=== PATIENT | male | born 1930 | race African-American/Black ===

== ENCOUNTER 2017-04-18 13:20 | Inpatient (IN) | payer MEDICARE, BC ==
[~2017-04-18] VITALS: Ht 180.3 cm; Wt 95.3 kg
[~2017-04-18 13:20] MED LIST: BENA20TA3 PO; CLOP75TA33 PO; LEVOTHYROXINE OR
[2017-04-18 15:11] LABS: BASOPHILS % 0.6 % (0.0-2.0); EOSINOPHILS % 6.2 % (0.0-5.0); HEMOGLOBIN. 11.5 g/dL (14.0-18.0); LYMPHOCYTES % 24.7 % (20.0-50.0); MEAN CORPUSCULAR HEMOGLOBIN 28.2 pg (28.0-32.0); MEAN CORPUSCULAR VOLUME 86.1 fL (80.0-94.0); MEAN PLATELET VOLUME 10.5 fl (7.4-10.4); MONOCYTES % 10.6 % (2.0-8.0); NEUTROPHILS % 57.9 % (40.0-76.0); PLATELET 149 x1000/uL (130-400); RED BLOOD CELL COUNT 4.06 mill/uL (4.7-6.1); RED CELL DISTRIBUTION WIDTH 13.7 % (11.6-14.6)
[2017-04-18 15:18] LABS: INR 1.1; PROTHROMBIN TIME 11.2 sec (9.4-11.6)
[2017-04-18 15:26] LABS: CARBON DIOXIDE 31 mEq/L (21-32); CHLORIDE 101 mEq/L (98-107); TROPONIN I < 0.02 ng/mL (0.00-0.04)
[2017-04-18] MEDS ORDERED: SODIUM CHLORIDE 0.9% 1,000 ML IV ONE (17:00)
[2017-04-18 23:42] VITALS: BP 159/63
[2017-04-19 00:23] VITALS: BP 159/63
[2017-04-19] MEDS ORDERED: LEVO100T9 PO (01:20)
[2017-04-19] MEDS ORDERED: LEVOFLOXACIN 500MG PREMIX 100 ML IV SCH ×2 (01:30→04:00)
[2017-04-19] MEDS ORDERED: IPRATROPIUM/ALBUTEROL 0.5-3(2.5)MG/3ML NEB HHN PRN (01:30)
[2017-04-19] MEDS ORDERED: ACETAMINOPHEN 650MG/20.3ML UDC PO PRN (01:30)
[2017-04-19 04:00] VITALS: BP 106/53
[2017-04-19] MEDS: IPRATROPIUM/ALBUTEROL 0.5-3(2.5)MG/3ML NEB HHN SCH ×6 (05:41→23:43)
[2017-04-19] MEDS ORDERED: METHYLPREDNISOLONE SOD SUCC 40 MG/ML VIAL IV SCH (06:00)
[2017-04-19] MEDS: OMEPRAZOLE 20MG CAPSULE EXTENDED RELEASE PO SCH (06:50)
[2017-04-19] MEDS: LEVOTHYROXINE SODIUM 100MCG TABLET PO SCH (06:51)
[2017-04-19 06:55] LABS: BASOPHILS % 0.4 % (0.0-2.0); EOSINOPHILS % 4.4 % (0.0-5.0); HEMATOCRIT. 36.2 % (42.0-52.0); MEAN CORPUSCULAR HEMOGLOBIN 28.6 pg (28.0-32.0); MEAN CORPUSCULAR VOLUME 86.1 fL (80.0-94.0); MEAN PLATELET VOLUME 10.7 fl (7.4-10.4); MONOCYTES % 11.2 % (2.0-8.0); PLATELET 152 x1000/uL (130-400); RED BLOOD CELL COUNT 4.21 mill/uL (4.7-6.1); RED CELL DISTRIBUTION WIDTH 13.8 % (11.6-14.6)
[2017-04-19 07:33] LABS: CHLORIDE 102 mEq/L (98-107)
[2017-04-19 08:00] VITALS: BP 138/53
[2017-04-19 08:17] LABS: CARBON DIOXIDE 22 mEq/L (21-32)
[2017-04-19] MEDS ORDERED: AMLODIPINE 10MG TABLET PO SCH (09:00)
[2017-04-19] MEDS: ENOXAPARIN 40MG/0.4ML SYR SUBCUT SCH (09:00)
[2017-04-19 12:00] VITALS: BP 115/48
[2017-04-19] MEDS: BENAZEPRIL 20MG TABLET PO SCH (14:48)
[2017-04-19 14:53] LABS: CLARITY URINE CLEAR (CLEAR); COLOR URINE YELLOW (YELLOW); KETONES URINE NEGATIVE (NEGATIVE); LEUKOCYTE ESTERASE URINE TRACE (NEGATIVE); NITRITE URINE NEGATIVE (NEGATIVE); OCCULT BLOOD URINE 3+ (NEGATIVE); PROTEIN URINE NEGATIVE (NEGATIVE); SPECIFIC GRAVITY URINE 1.013 (1.005-1.030); UROBILINOGEN URINE 0.2 E.U./dL (0.2-1.0)
[2017-04-19 16:00] VITALS: BP 137/56
[2017-04-19 20:00] VITALS: BP 138/55
[2017-04-20] VITALS: BP 100/51
[2017-04-20 04:00] VITALS: BP 118/51
[2017-04-20] MEDS: IPRATROPIUM/ALBUTEROL 0.5-3(2.5)MG/3ML NEB HHN SCH ×4 (04:00→12:00)
[2017-04-20 08:00] VITALS: BP 102/47
[2017-04-20] MEDS: LEVOTHYROXINE SODIUM 100MCG TABLET PO SCH (08:29)
[2017-04-20] MEDS: OMEPRAZOLE 20MG CAPSULE EXTENDED RELEASE PO SCH (08:29)
[2017-04-20] MEDS: BENAZEPRIL 20MG TABLET PO SCH ×2 (08:29→08:33)
[2017-04-20] MEDS: ENOXAPARIN 40MG/0.4ML SYR SUBCUT SCH (08:30)
[2017-04-20 12:00] VITALS: BP 104/44
[2017-04-20 13:27] VITALS: BP 104/46
== END 2017-04-20 15:35 | disposition home or self-care (01) | DRG 74 ==
LOC: ER 13:42 → 8WST 17:07 → ENRESERV 21:54
PROVIDERS: ADMIT Internal Medicine; ATTEND Internal Medicine
DX: G90.8 Other disorders of autonomic nervous system (principal); I11.0 Hypertensive heart disease with heart failure; D64.9 Anemia, unspecified; I50.32 Chronic diastolic (congestive) heart failure; E03.9 Hypothyroidism, unspecified; Z85.46 Personal history of malignant neoplasm of prostate; Z87.891 Personal history of nicotine dependence; Z88.6 Allergy status to analgesic agent; Z79.899 Other long term (current) drug therapy
CPT/HCPCS: 36415; 70450; 71045; 80048; 80053; 80061; 81001; 83880; 84443; 84484; 85025; 85610; 93005; 93306; 93880; 94640; 94664; 96360; 96361; 99285; J1650; J1956; J2920; J7030; J7050; J7620

== ENCOUNTER 2018-03-13 13:03 | Inpatient (IN) | payer MEDICARE, BC ==
[~2018-03-13] VITALS: Ht 177.8 cm; Wt 90.3 kg
[~2018-03-13 13:03] MED LIST changes: +BENA20TA10 PO; -BENA20TA3 PO; +LEVO100T9 PO; -LEVOTHYROXINE OR
[2018-03-13] MEDS ORDERED: SODIUM CHLORIDE 0.9% 500 ML IV ONE (13:14)
[2018-03-13 13:45] LABS: BASOPHILS % 1.9 % (0.0-2.0); HEMATOCRIT. 34.1 % (42.0-52.0); HEMOGLOBIN. 11.3 g/dL (14.0-18.0); LYMPHOCYTES % 31.4 % (20.0-50.0); MEAN CORPUSCULAR HEMOGLOBIN 28.3 pg (28.0-32.0); MEAN CORPUSCULAR VOLUME 85.5 fL (80.0-94.0); MEAN PLATELET VOLUME 10.5 fl (7.4-10.4); MONOCYTES % 9.4 % (2.0-8.0); NEUTROPHILS % 53.3 % (40.0-76.0); PLATELET 162 x1000/uL (130-400); RED CELL DISTRIBUTION WIDTH 14.4 % (11.6-14.6)
[2018-03-13 14:54] LABS: CHLORIDE 105 mEq/L (98-107)
[2018-03-13 14:57] LABS: INR 1.1; PARTIAL THROMBOPLASTIN TIME 25.7 sec (23.4-31.0); PROTHROMBIN TIME 10.8 sec (9.1-11.1)
[2018-03-13 16:00] VITALS: BP 182/82
[2018-03-13] MEDS ORDERED: ONDANSETRON HCL 4MG/2ML INJ IV PRN (16:00)
[2018-03-13] MEDS ORDERED: ACETAMINOPHEN 325MG TABLET PO PRN (16:00)
[2018-03-13 16:27] VITALS: BP 182/82
[2018-03-13] MEDS ORDERED: CLONIDINE 0.1MG TABLET PO PRN (17:45)
[2018-03-13] MEDS ORDERED: HYDROCODONE/ACETAMINOPHEN 5/325MG TABLET PO PRN (17:45)
[2018-03-13 20:00] VITALS: BP 128/80
[2018-03-13] MEDS: AMLODIPINE 5MG TABLET PO SCH (20:50)
[2018-03-14] VITALS: BP 147/54
[2018-03-14 04:00] VITALS: BP 137/53
[2018-03-14] MEDS: LEVOTHYROXINE SODIUM 100MCG TABLET PO SCH (06:11)
[2018-03-14 06:50] LABS: CHLORIDE 104 mEq/L (98-107)
[2018-03-14 06:56] LABS: LDL CHOLESTEROL 99 mg/dL (5-100)
[2018-03-14 06:58] LABS: HDL CHOLESTEROL 45 mg/dL (40-59)
[2018-03-14 08:00] VITALS: BP 148/59
[2018-03-14 08:15] LABS: BASOPHILS % 0.5 % (0.0-2.0); EOSINOPHILS % 4.4 % (0.0-5.0); HEMATOCRIT. 33.8 % (42.0-52.0); LYMPHOCYTES % 27.9 % (20.0-50.0); MEAN CORPUSCULAR HEMOGLOBIN 28.1 pg (28.0-32.0); MEAN CORPUSCULAR VOLUME 86.1 fL (80.0-94.0); MEAN PLATELET VOLUME 10.9 fl (7.4-10.4); MONOCYTES % 11.2 % (2.0-8.0); PLATELET 149 x1000/uL (130-400); RED BLOOD CELL COUNT 3.93 mill/uL (4.7-6.1); RED CELL DISTRIBUTION WIDTH 14.2 % (11.6-14.6)
[2018-03-14] MEDS: BENAZEPRIL 10MG TABLET PO SCH (08:33)
[2018-03-14] MEDS: CLOPIDOGREL 75MG TABLET PO SCH (08:33)
[2018-03-14] MEDS: AMLODIPINE 5MG TABLET PO SCH ×2 (08:34→20:32)
[2018-03-14 11:25] LABS: CLARITY URINE CLEAR (CLEAR); COLOR URINE YELLOW (YELLOW); KETONES URINE NEGATIVE (NEGATIVE); LEUKOCYTE ESTERASE URINE TRACE (NEGATIVE); NITRITE URINE NEGATIVE (NEGATIVE); OCCULT BLOOD URINE 2+ (NEGATIVE); PH URINE 7.5 (4.5-8.0); PROTEIN URINE NEGATIVE (NEGATIVE); SPECIFIC GRAVITY URINE 1.011 (1.005-1.030); UROBILINOGEN URINE 0.2 E.U./dL (0.2-1.0)
[2018-03-14 12:00] VITALS: BP_SYST 114; BP_SYST 158; BP_SYST 166; BP_DIAS 55; BP_DIAS 65; BP_DIAS 72
[2018-03-14 16:00] VITALS: BP 150/66
[2018-03-14] MEDS ORDERED: FLUDROCORTISONE ACETATE 0.1MG TABLET PO NR (17:00)
[2018-03-14 20:00] VITALS: BP 194/74
[2018-03-15 00:08] VITALS: BP 144/70
[2018-03-15 04:02] VITALS: BP 140/78
[2018-03-15] MEDS: LEVOTHYROXINE SODIUM 100MCG TABLET PO SCH (06:35)
[2018-03-15 06:57] LABS: BASOPHILS % 0.4 % (0.0-2.0); EOSINOPHILS % 4.6 % (0.0-5.0); HEMOGLOBIN. 11.1 g/dL (14.0-18.0); LYMPHOCYTES % 30.2 % (20.0-50.0); MEAN CORPUSCULAR HEMOGLOBIN 27.9 pg (28.0-32.0); MEAN CORPUSCULAR VOLUME 85.8 fL (80.0-94.0); MEAN PLATELET VOLUME 10.6 fl (7.4-10.4); MONOCYTES % 11.9 % (2.0-8.0); NEUTROPHILS % 52.9 % (40.0-76.0); PLATELET 157 x1000/uL (130-400); RED BLOOD CELL COUNT 3.96 mill/uL (4.7-6.1); RED CELL DISTRIBUTION WIDTH 13.9 % (11.6-14.6)
[2018-03-15 08:00] VITALS: BP 119/57
[2018-03-15 08:15] LABS: CHLORIDE 103 mEq/L (98-107)
[2018-03-15] MEDS ORDERED: FLUDROCORTISONE ACETATE 0.1MG TABLET PO SCH (09:00)
[2018-03-15] MEDS: AMLODIPINE 5MG TABLET PO SCH (09:14)
[2018-03-15] MEDS: CLOPIDOGREL 75MG TABLET PO SCH (09:14)
[2018-03-15] MEDS: BENAZEPRIL 10MG TABLET PO SCH (09:15)
[2018-03-15 09:43] VITALS: BP 119/119
== END 2018-03-15 12:33 | disposition home or self-care (01) | DRG 73 ==
LOC: ER 13:03 → 6WST 14:22 → ENRESERV 15:21
PROVIDERS: ADMIT Internal Medicine; ATTEND Internal Medicine
DX: G90.8 Other disorders of autonomic nervous system (principal); I50.43 Acute on chronic combined systolic (congestive) and diastolic (congestive) heart failure; I11.0 Hypertensive heart disease with heart failure; I95.1 Orthostatic hypotension; D63.8 Anemia in other chronic diseases classified elsewhere; E78.5 Hyperlipidemia, unspecified; I25.10 Atherosclerotic heart disease of native coronary artery without angina pectoris; E03.9 Hypothyroidism, unspecified; E78.00 Pure hypercholesterolemia, unspecified; H04.123 Dry eye syndrome of bilateral lacrimal glands; J45.909 Unspecified asthma, uncomplicated; Z85.46 Personal history of malignant neoplasm of prostate; Z87.11 Personal history of peptic ulcer disease; Z87.891 Personal history of nicotine dependence; Z95.1 Presence of aortocoronary bypass graft; Z88.6 Allergy status to analgesic agent; Z79.899 Other long term (current) drug therapy; E86.0 Dehydration
CPT/HCPCS: 36415; 70551; 71045; 80048; 80061; 83735; 83880; 84443; 84484; 93005; 93306; 93880; 96360; 96361; 97162; 97535; 99285; J7040

== ENCOUNTER 2019-02-04 10:12 | Inpatient (IN) | payer MEDICARE, BC ==
[~2019-02-04] VITALS: Ht 177.8 cm; Wt 81.7 kg
[2019-02-04 11:10] LABS: BASOPHILS % 0.9 % (0.0-2.0); EOSINOPHILS % 2.1 % (0.0-5.0); HEMATOCRIT. 30.9 % (42.0-52.0); HEMOGLOBIN. 10.2 g/dL (14.0-18.0); LYMPHOCYTES % 17.1 % (20.0-50.0); MEAN CORPUSCULAR HEMOGLOBIN 28.9 pg (28.0-32.0); MEAN CORPUSCULAR VOLUME 87.4 fL (80.0-94.0); MEAN PLATELET VOLUME 9.2 fl (7.4-10.4); MONOCYTES % 6.8 % (2.0-8.0); NEUTROPHILS % 73.1 % (40.0-76.0); PLATELET 113 x1000/uL (130-400); RED BLOOD CELL COUNT 3.54 mill/uL (4.7-6.1); RED CELL DISTRIBUTION WIDTH 14.5 % (11.6-14.6)
[2019-02-04 11:16] LABS: CHLORIDE 104 mEq/L (98-107)
[2019-02-04 11:25] LABS: CLARITY URINE CLOUDY (CLEAR); KETONES URINE NEGATIVE (NEGATIVE); LEUKOCYTE ESTERASE URINE 2+ (NEGATIVE); NITRITE URINE NEGATIVE (NEGATIVE); OCCULT BLOOD URINE 3+ (NEGATIVE); PH URINE 5.5 (4.5-8.0); PROTEIN URINE 2+ (NEGATIVE); SPECIFIC GRAVITY URINE 1.021 (1.005-1.030); UROBILINOGEN URINE 0.2 E.U./dL (0.2-1.0)
[2019-02-04 11:29] LABS: COLOR URINE BLOODY (YELLOW)
[2019-02-04] MEDS ORDERED: CEFTRIAXONE 1 G PREMIX 50 ML IV ONE (11:45)
[2019-02-04] MEDS ORDERED: ONDANSETRON HCL 4MG/2ML INJ IV PRN (14:15)
[2019-02-04] MEDS ORDERED: ACETAMINOPHEN 325MG TABLET PO PRN (14:15)
[2019-02-04 16:00] VITALS: BP 151/64
[2019-02-04] MEDS: SODIUM CHLORIDE 0.9% 1,000 ML IV SCH (16:00)
[2019-02-04 16:19] VITALS: BP 151/64
[2019-02-04] MEDS ORDERED: CRES10 PO (17:20)
[2019-02-04] MEDS ORDERED: BENA5TAB6 PO (17:22)
[2019-02-04] MEDS ORDERED: INFLUENZA VIRUS VACCINE(AFLURIA) 0.5ML SYR IM ONE (18:00)
[2019-02-04] MEDS ORDERED: CLONIDINE 0.1MG TABLET PO PRN (20:45)
[2019-02-04] MEDS: TAMSULOSIN HCL 0.4MG SR CAPSULE PO SCH (21:18)
[2019-02-05] VITALS: BP 147/62
[2019-02-05 04:00] VITALS: BP 140/57
[2019-02-05] MEDS: SODIUM CHLORIDE 0.9% 1,000 ML IV SCH ×2 (05:02→18:01)
[2019-02-05 07:29] LABS: BASOPHILS % 0.4 % (0.0-2.0); EOSINOPHILS % 4.6 % (0.0-5.0); HEMATOCRIT. 32.2 % (42.0-52.0); HEMOGLOBIN. 10.7 g/dL (14.0-18.0); LYMPHOCYTES % 15.9 % (20.0-50.0); MEAN CORPUSCULAR HEMOGLOBIN 28.8 pg (28.0-32.0); MEAN CORPUSCULAR VOLUME 87.2 fL (80.0-94.0); MEAN PLATELET VOLUME 9.8 fl (7.4-10.4); MONOCYTES % 3.7 % (2.0-8.0); NEUTROPHILS % 75.4 % (40.0-76.0); PLATELET 124 x1000/uL (130-400); RED CELL DISTRIBUTION WIDTH 14.3 % (11.6-14.6)
[2019-02-05 07:40] LABS: CHLORIDE 103 mEq/L (98-107)
[2019-02-05 08:00] VITALS: BP_SYST 152; BP_SYST 157; BP_DIAS 77
[2019-02-05] MEDS ORDERED: CEFTRIAXONE 1 G PREMIX 50 ML IV SCH (09:00)
[2019-02-05 12:00] VITALS: BP 140/68
[2019-02-05 16:00] VITALS: BP 138/79
[2019-02-05 20:00] VITALS: BP 117/58
[2019-02-05] MEDS: TAMSULOSIN HCL 0.4MG SR CAPSULE PO SCH (21:50)
[2019-02-06] VITALS (7 sets, daily range): BP systolic 87–155; BP diastolic 35–70
[2019-02-06 05:48] LABS: CHLORIDE 101 mEq/L (98-107)
[2019-02-06 06:17] LABS: BASOPHILS % 0.2 % (0.0-2.0); EOSINOPHILS % 3.6 % (0.0-5.0); HEMATOCRIT. 31.6 % (42.0-52.0); HEMOGLOBIN. 10.4 g/dL (14.0-18.0); LYMPHOCYTES % 15.6 % (20.0-50.0); MEAN CORPUSCULAR HEMOGLOBIN 28.5 pg (28.0-32.0); MEAN CORPUSCULAR VOLUME 86.5 fL (80.0-94.0); MONOCYTES % 2.2 % (2.0-8.0); NEUTROPHILS % 78.4 % (40.0-76.0); PLATELET 125 x1000/uL (130-400); RED BLOOD CELL COUNT 3.65 mill/uL (4.7-6.1); RED CELL DISTRIBUTION WIDTH 14.2 % (11.6-14.6)
[2019-02-06] MEDS: CEFTRIAXONE 1,000 MG in DEXTROSE 5% WATER 50 ML IV SCH (08:42)
[2019-02-06] MEDS: SODIUM CHLORIDE 0.9% 1,000 ML IV SCH ×2 (08:42→20:35)
[2019-02-06] MEDS: FLUDROCORTISONE ACETATE 0.1MG TABLET PO SCH (13:28)
[2019-02-06] MEDS: TAMSULOSIN HCL 0.4MG SR CAPSULE PO SCH (20:32)
[2019-02-07 00:38] VITALS: BP 136/61
[2019-02-07 04:00] VITALS: BP 110/24
[2019-02-07 06:29] LABS: BASOPHILS % 0.4 % (0.0-2.0); EOSINOPHILS % 6.1 % (0.0-5.0); LYMPHOCYTES % 22.6 % (20.0-50.0); MEAN CORPUSCULAR HEMOGLOBIN 28.8 pg (28.0-32.0); MEAN CORPUSCULAR VOLUME 86.4 fL (80.0-94.0); MEAN PLATELET VOLUME 10.3 fl (7.4-10.4); MONOCYTES % 1.9 % (2.0-8.0); PLATELET 131 x1000/uL (130-400); RED BLOOD CELL COUNT 3.47 mill/uL (4.7-6.1); RED CELL DISTRIBUTION WIDTH 14.3 % (11.6-14.6)
[2019-02-07 07:01] LABS: CHLORIDE 103 mEq/L (98-107)
[2019-02-07 08:00] VITALS: BP_SYST 164; BP_SYST 165; BP_DIAS 75; BP_DIAS 80
[2019-02-07] MEDS: FLUDROCORTISONE ACETATE 0.1MG TABLET PO SCH (08:23)
[2019-02-07] MEDS: CEFTRIAXONE 1,000 MG in DEXTROSE 5% WATER 50 ML IV SCH (08:23)
[2019-02-07] MEDS: SODIUM CHLORIDE 0.9% 1,000 ML IV SCH (10:53)
[2019-02-07] MEDS: POLYETHYLENE GLYCOL 3350 (17GM) 1 DOSE PACK PO SCH (10:53)
[2019-02-07 11:35] LABS: PHOSPHORUS 2.9 mg/dL (2.5-4.9)
[2019-02-07 11:48] LABS: FOLIC ACID (FOLATE) SERUM 19.5 ng/mL (>5.38)
[2019-02-07 12:00] VITALS: BP 126/65
[2019-02-07 16:00] VITALS: BP_SYST 116; BP_SYST 123; BP_SYST 97; BP_DIAS 47; BP_DIAS 55; BP_DIAS 59
[2019-02-07] MEDS: DOCUSATE SODIUM 100MG CAPSULE PO SCH (16:27)
[2019-02-07 20:21] VITALS: BP 144/75
[2019-02-07] MEDS: TAMSULOSIN HCL 0.4MG SR CAPSULE PO SCH (21:44)
[2019-02-08] VITALS: BP 138/53
[2019-02-08] MEDS: SODIUM CHLORIDE 0.9% 1,000 ML IV SCH ×2 (01:37→18:35)
[2019-02-08 04:00] VITALS: BP 123/53
[2019-02-08 08:00] VITALS: BP 129/60
[2019-02-08] MEDS: FLUDROCORTISONE ACETATE 0.1MG TABLET PO SCH (08:46)
[2019-02-08] MEDS: DOCUSATE SODIUM 100MG CAPSULE PO SCH ×2 (08:47→18:35)
[2019-02-08] MEDS: POLYETHYLENE GLYCOL 3350 (17GM) 1 DOSE PACK PO SCH (08:47)
[2019-02-08] MEDS: CEFTRIAXONE 1,000 MG in DEXTROSE 5% WATER 50 ML IV SCH (09:44)
[2019-02-08 11:54] VITALS: BP 104/41
[2019-02-08 16:00] VITALS: BP 135/60
[2019-02-08] MEDS: TAMSULOSIN HCL 0.4MG SR CAPSULE PO SCH (21:00)
[2019-02-09] VITALS (7 sets, daily range): BP systolic 129–167; BP diastolic 55–82
[2019-02-09] MEDS: SODIUM CHLORIDE 0.9% 1,000 ML IV SCH (02:40)
[2019-02-09 06:40] LABS: BASOPHILS % 0.4 % (0.0-2.0); EOSINOPHILS % 3.8 % (0.0-5.0); HEMATOCRIT. 26.6 % (42.0-52.0); HEMOGLOBIN. 8.9 g/dL (14.0-18.0); LYMPHOCYTES % 36.5 % (20.0-50.0); MEAN CORPUSCULAR HEMOGLOBIN 28.9 pg (28.0-32.0); MEAN CORPUSCULAR VOLUME 86.2 fL (80.0-94.0); MEAN PLATELET VOLUME 9.7 fl (7.4-10.4); MONOCYTES % 9.8 % (2.0-8.0); NEUTROPHILS % 49.5 % (40.0-76.0); PLATELET 106 x1000/uL (130-400); RED BLOOD CELL COUNT 3.08 mill/uL (4.7-6.1); RED CELL DISTRIBUTION WIDTH 14.2 % (11.6-14.6)
[2019-02-09 06:59] LABS: CHLORIDE 107 mEq/L (98-107)
[2019-02-09 07:13] LABS: T4 FREE 1.17 ng/dL (0.76-1.46)
[2019-02-09] MEDS: CEFTRIAXONE 1,000 MG in DEXTROSE 5% WATER 50 ML IV SCH (08:38)
[2019-02-09] MEDS: FLUDROCORTISONE ACETATE 0.1MG TABLET PO SCH (08:51)
[2019-02-09] MEDS: DOCUSATE SODIUM 100MG CAPSULE PO SCH (08:51)
[2019-02-09] MEDS: POLYETHYLENE GLYCOL 3350 (17GM) 1 DOSE PACK PO SCH (08:51)
[2019-02-09] MEDS ORDERED: LEVOTHYROXINE SODIUM 100MCG TABLET PO SCH (09:00)
[2019-02-09] MEDS ORDERED: MEMANTINE HCL 5MG TABLET PO SCH (21:00)
[2019-02-09] MEDS: TAMSULOSIN HCL 0.4MG SR CAPSULE PO SCH (22:17)
[2019-02-18 15:06] LABS: 25-HYDROXY VITAMIN D3 23 ng/mL (.)
== END 2019-02-10 00:15 | DRG 689 ==
LOC: ER 10:12 → 7WST 12:11 → ENRESERV 13:01
PROVIDERS: ADMIT Internal Medicine Nephrology; ATTEND Internal Medicine Nephrology
DX: N39.0 Urinary tract infection, site not specified (principal); G92 Toxic encephalopathy; E46 Unspecified protein-calorie malnutrition; E87.1 Hypo-osmolality and hyponatremia; E44.1 Mild protein-calorie malnutrition; E03.9 Hypothyroidism, unspecified; E78.5 Hyperlipidemia, unspecified; J45.909 Unspecified asthma, uncomplicated; I11.9 Hypertensive heart disease without heart failure; Z95.0 Presence of cardiac pacemaker; W18.30XA Fall on same level, unspecified, initial encounter; N40.1 Benign prostatic hyperplasia with lower urinary tract symptoms; I95.1 Orthostatic hypotension; N40.0 Benign prostatic hyperplasia without lower urinary tract symptoms; Z83.2 Family history of diseases of the blood and blood-forming organs and certain disorders involving the immune mechanism; Z87.11 Personal history of peptic ulcer disease; Z85.46 Personal history of malignant neoplasm of prostate; D64.9 Anemia, unspecified; D69.6 Thrombocytopenia, unspecified; E78.00 Pure hypercholesterolemia, unspecified
CPT/HCPCS: 36415; 71045; 80048; 80320; 81003; 82140; 82306; 82550; 82607; 82746; 83036; 83735; 84100; 84153; 84439; 84443; 84481; 90686; 92523; 92610; 93306; 93970; 97110; 97162; 97166; 97530; 97535; 99285; J0696; J7060; G0103; G0480

== ENCOUNTER 2019-05-08 12:58 | Inpatient (IN) | payer MEDICARE, BC ==
[~2019-05-08] VITALS: Ht 177.8 cm; Wt 83.0 kg
[~2019-05-08 12:58] MED LIST changes: -BENA20TA10 PO; +CRES10 PO; +DOCU-138 PO; +FLOR PO; +MEMA5TAB7 PO; +MIDO5TAB4 PO; +NITR100C MT; +TAMS-11 PO
[2019-05-08] MEDS ORDERED: SODIUM CHLORIDE 0.9% 1,000 ML IV ONE (15:24)
[2019-05-08 15:50] LABS: CLARITY URINE CLEAR (CLEAR); COLOR URINE YELLOW (YELLOW); KETONES URINE NEGATIVE (NEGATIVE); LEUKOCYTE ESTERASE URINE TRACE (NEGATIVE); NITRITE URINE NEGATIVE (NEGATIVE); OCCULT BLOOD URINE TRACE (NEGATIVE); PH URINE 7.5 (4.5-8.0); PROTEIN URINE NEGATIVE (NEGATIVE); SPECIFIC GRAVITY URINE 1.012 (1.005-1.030); UROBILINOGEN URINE 0.2 E.U./dL (0.2-1.0)
[2019-05-08 16:37] LABS: *AMPHETAMINES SCREEN URINE NEGATIVE (NEGATIVE)
[2019-05-08 16:38] LABS: *BARBITURATES SCREEN URINE NEGATIVE (NEGATIVE); *BENZODIAZEPINES SCREEN URINE NEGATIVE (NEGATIVE); *COCAINE SCREEN URINE NEGATIVE (NEGATIVE); CANNABINOID URINE SCREEN NEGATIVE (NEGATIVE); METHADONE URINE SCREEN NEGATIVE (NEGATIVE); OPIATES URINE SCREEN NEGATIVE (NEGATIVE); PHENCYCLIDINE URINE SCREEN NEGATIVE (NEGATIVE)
[2019-05-08 17:32] LABS: BASOPHILS % 0.4 % (0.0-2.0); EOSINOPHILS % 3.7 % (0.0-5.0); HEMATOCRIT. 38.7 % (42.0-52.0); HEMOGLOBIN. 12.5 g/dL (14.0-18.0); LYMPHOCYTES % 18.6 % (20.0-50.0); MEAN CORPUSCULAR HEMOGLOBIN 26.8 pg (28.0-32.0); MEAN PLATELET VOLUME 9.7 fl (7.4-10.4); NEUTROPHILS % 69.3 % (40.0-76.0); PLATELET 158 x1000/uL (130-400); RED BLOOD CELL COUNT 4.66 mill/uL (4.7-6.1); RED CELL DISTRIBUTION WIDTH 15.6 % (11.6-14.6)
[2019-05-08 17:38] LABS: CHLORIDE 104 mEq/L (98-107)
[2019-05-08 17:44] LABS: ETHANOL BLOOD < 10 mg/dL
[2019-05-08] MEDS ORDERED: IPRATROPIUM/ALBUTEROL 0.5-3(2.5)MG/3ML NEB HHN PRN (17:45)
[2019-05-08] MEDS ORDERED: ONDANSETRON HCL 4MG/2ML INJ IV PRN (17:45)
[2019-05-08] MEDS ORDERED: DIPHENHYDRAMINE 50MG/ML VIAL IV PRN (17:45)
[2019-05-08] MEDS ORDERED: ACETAMINOPHEN 325MG TABLET PO PRN (17:45)
[2019-05-08] MEDS ORDERED: ENOXAPARIN 40MG/0.4ML SYR SUBCUT NR (18:00)
[2019-05-08] MEDS: CLONIDINE 0.1MG TABLET PO PRN (18:33)
[2019-05-08] MEDS ORDERED: HYDRALAZINE 20MG/ML VIAL IV PRN (18:45)
[2019-05-08 18:53] LABS: PHOSPHORUS 3.4 mg/dL (2.5-4.9)
[2019-05-08 22:00] VITALS: BP 171/85
[2019-05-09] VITALS: BP 160/64
[2019-05-09] MEDS ORDERED: HYDR-4133 PO (00:17)
[2019-05-09] MEDS ORDERED: POLY250017 PO (00:17)
[2019-05-09] MEDS ORDERED: ATOR10TA69 PO (00:17)
[2019-05-09 04:00] VITALS: BP 139/66
[2019-05-09 06:13] LABS: BASOPHILS % 0.4 % (0.0-2.0); EOSINOPHILS % 6.5 % (0.0-5.0); HEMATOCRIT. 37.6 % (42.0-52.0); HEMOGLOBIN. 12.1 g/dL (14.0-18.0); LYMPHOCYTES % 27.7 % (20.0-50.0); MEAN CORPUSCULAR HEMOGLOBIN 26.9 pg (28.0-32.0); MEAN CORPUSCULAR VOLUME 83.3 fL (80.0-94.0); MEAN PLATELET VOLUME 10.3 fl (7.4-10.4); MONOCYTES % 11.4 % (2.0-8.0); PLATELET 161 x1000/uL (130-400); RED BLOOD CELL COUNT 4.52 mill/uL (4.7-6.1)
[2019-05-09 08:00] VITALS: BP 150/68
[2019-05-09] MEDS ORDERED: ENOXAPARIN 40MG/0.4ML SYR SUBCUT SCH (09:00)
[2019-05-09] MEDS ORDERED: ENOXAPARIN 30MG/0.3ML SYR SUBCUT SCH (09:00)
[2019-05-09 12:00] VITALS: BP 121/41
[2019-05-09 16:00] VITALS: BP 148/66
[2019-05-09 20:38] VITALS: BP 167/75
[2019-05-10] VITALS: BP 154/67
[2019-05-10 04:00] VITALS: BP 109/69
[2019-05-10 08:00] VITALS: BP 141/68
[2019-05-10] MEDS: ENOXAPARIN 40MG/0.4ML SYR SUBCUT SCH (09:25)
[2019-05-10 12:00] VITALS: BP 135/61
[2019-05-10 16:00] VITALS: BP 147/64
[2019-05-10 20:21] VITALS: BP 149/67
[2019-05-11] VITALS (7 sets, daily range): BP systolic 125–190; BP diastolic 57–89
[2019-05-11] MEDS: ENOXAPARIN 40MG/0.4ML SYR SUBCUT SCH (08:34)
[2019-05-11] MEDS: CLONIDINE 0.1MG TABLET PO PRN (08:34)
[2019-05-11] MEDS ORDERED: AMLO5TAB88 MT (16:06)
[2019-05-11] MEDS ORDERED: AMLODIPINE 5MG TABLET PO SCH (21:00)
== END 2019-05-11 19:42 | DRG 74 ==
LOC: ER 13:11 → 6WST 16:30 → ENRESERV 21:04
PROVIDERS: ADMIT Internal Medicine; ATTEND Internal Medicine
DX: G90.8 Other disorders of autonomic nervous system (principal); N39.0 Urinary tract infection, site not specified; I48.0 Paroxysmal atrial fibrillation; I49.5 Sick sinus syndrome; F02.80 Dementia in other diseases classified elsewhere, unspecified severity, without behavioral disturbance, psychotic disturbance, mood disturbance, and anxiety; G30.9 Alzheimer's disease, unspecified; E03.9 Hypothyroidism, unspecified; E78.5 Hyperlipidemia, unspecified; I11.0 Hypertensive heart disease with heart failure; J44.9 Chronic obstructive pulmonary disease, unspecified; I50.9 Heart failure, unspecified; D64.9 Anemia, unspecified; Z95.0 Presence of cardiac pacemaker; Z87.01 Personal history of pneumonia (recurrent); Z85.51 Personal history of malignant neoplasm of bladder; Z79.899 Other long term (current) drug therapy; Z88.6 Allergy status to analgesic agent
CPT/HCPCS: 36415; 71045; 80053; 80061; 80305; 80320; 81003; 82962; 83605; 83735; 84100; 84443; 84484; 85025; 93005; 93970; 96372; 97162; 97166; 99285; J0360; J1650; J7030; G0480

== ENCOUNTER 2019-06-18 12:25 | Inpatient (IN) | payer MEDICARE, BC ==
[2019-06-18] VITALS (14 sets, daily range): BP systolic 62–76; BP diastolic 34–46
[~2019-06-18] VITALS: Ht 185.4 cm; Wt 95.3 kg
[~2019-06-18 12:25] MED LIST changes: +AMLO5TAB88 MT; +ATOR10TA69 PO; -MIDO5TAB4 PO; +POLY250017 PO
[2019-06-18] MEDS ORDERED: SODIUM CHLORIDE 0.9% 1000ML BAG (SEPSIS BOLUS) IV ONE (12:45)
[2019-06-18] MEDS ORDERED: PIPERACILLIN/TAZ 3.375G PREMIX 50 ML IV ONE (12:45)
[2019-06-18] MEDS ORDERED: AZITHROMYCIN 500 MG in DEXT 5% WATER 250 ML IV ONE (12:45)
[2019-06-18 12:52] LABS: HEMATOCRIT. 30.8 % (42.0-52.0); HEMOGLOBIN. 10.1 g/dL (14.0-18.0); MEAN CORPUSCULAR HEMOGLOBIN 27.2 pg (28.0-32.0); MEAN CORPUSCULAR VOLUME 83.1 fL (80.0-94.0); MEAN PLATELET VOLUME 8.8 fl (7.4-10.4); PLATELET 246 x1000/uL (130-400); RED CELL DISTRIBUTION WIDTH 15.2 % (11.6-14.6)
[2019-06-18 12:58] LABS: CHLORIDE 98 mEq/L (98-107)
[2019-06-18 13:00] LABS: INR 1.1
[2019-06-18 13:13] LABS: PLATELET ESTIMATE NORMAL
[2019-06-18] MEDS ORDERED: VANCOMYCIN 1 G PREMIX 200 ML IV SCH (13:15)
[2019-06-18 13:31] LABS: CLARITY URINE TURBID (CLEAR); COLOR URINE YELLOW (YELLOW); KETONES URINE NEGATIVE (NEGATIVE); LEUKOCYTE ESTERASE URINE 3+ (NEGATIVE); NITRITE URINE NEGATIVE (NEGATIVE); OCCULT BLOOD URINE 3+ (NEGATIVE); PH URINE 5.5 (4.5-8.0); PROTEIN URINE 2+ (NEGATIVE); SPECIFIC GRAVITY URINE 1.012 (1.005-1.030); UROBILINOGEN URINE 0.2 E.U./dL (0.2-1.0)
[2019-06-18] MEDS ORDERED: NOREPINEPHRINE 4MG/250ML PMX 250 ML IV ONE ×2 (13:45→16:30)
[2019-06-18] MEDS ORDERED: SODIUM CHLORIDE 0.9% 1,000 ML IV SCH (15:02)
[2019-06-18] MEDS ORDERED: PIPERACILLIN/TAZ 3.375G PREMIX 50 ML IV SCH (15:15)
[2019-06-18] MEDS ORDERED: DIPHENHYDRAMINE 50MG/ML VIAL IV PRN (15:15)
[2019-06-18] MEDS ORDERED: CLONIDINE 0.1MG TABLET PO PRN (15:15)
[2019-06-18] MEDS ORDERED: ONDANSETRON HCL 4MG/2ML INJ IV PRN (15:15)
[2019-06-18] MEDS ORDERED: DOPAMINE 400MG/250ML PREMIX 250 ML IV ONE ×2 (15:30→16:54)
[2019-06-18] MEDS ORDERED: VASOPRESSIN 10 UNIT in SODIUM CHLORIDE 0.9% 99.5 ML IV PRN (16:15)
[2019-06-18] MEDS ORDERED: NOREPINEPHRINE 16 MG in DEXT 5% WATER 234 ML IV PRN ×2 (16:15→18:30)
[2019-06-18] MEDS ORDERED: PHENYLEPHRINE 40 MG in DEXT 5% WATER 246 ML IV PRN ×2 (16:30→19:15)
[2019-06-18 16:40] LABS: BG BASE EXCESS -25.2 mmol/L (-2.0-2.0); BG CARBOXYHEMOGLOBIN 0.1 % (0.5-1.5); BG DEOXYHEMOGLOBIN 29.5 % (0.0-5.0); BG FRACTION INSPIRED OXYGEN 100; BG HCO3 ACT 9.3 mmol/L (22.0-26.0); BG METHEMOGLOBIN 0.1 % (0.0-1.5); BG OXYGEN SATURATION 70.4 % (92.0-98.5); BG OXYHEMOGLOBIN 70.3 % (94.0-97.0); BG PCO2 60.5 mmHg (35.0-45.0); BG PH 6.803 (7.350-7.450); BG PO2 59.4 mmHg (75.0-100.0); BG SAMPLE SITE RIGHT BRACHIAL; BG TIDAL VOLUME(mL) 500 mL; BG TOTAL HEMOGLOBIN 11.7 g/dL (12.0-18.0); BG VENT MODE VENT - A/C; BG VENT RATE 16 set
[2019-06-18] MEDS: PHENYLEPHRINE 40 MG in DEXT 5% WATER 246 ML IV PRN ×2 (16:57→20:24)
[2019-06-18] MEDS: VASOPRESSIN 10 UNIT in SODIUM CHLORIDE 0.9% 99.5 ML IV PRN ×2 (16:57→20:36)
[2019-06-18] MEDS ORDERED: SODIUM BICARBONATE 8.4% 1 MEQ/ML 50ML SYR IV NR ×2 (17:15→22:00)
[2019-06-18] MEDS: SODIUM BICARBONATE 150 MEQ in SODIUM CHLORIDE 0.45% 850 ML IV SCH (18:02)
[2019-06-18] MEDS: DOPAMINE 800MG PREMIX (DOUBLE) 250 ML IV PRN ×2 (19:06→22:02)
[2019-06-18] MEDS ORDERED: NOREPINEPHRINE 32 MG in DEXT 5% WATER 468 ML IV PRN (19:15)
[2019-06-18] MEDS ORDERED: PHENYLEPHRINE 80 MG in DEXT 5% WATER 492 ML IV PRN (19:30)
[2019-06-18] MEDS ORDERED: DEXTROSE 50% WATER 50ML SYRINGE IV PRN (19:30)
[2019-06-18] MEDS ORDERED: ALBUMIN HUMAN 25GM/500ML (5%) IV ONE (20:00)
[2019-06-18] MEDS ORDERED: VANCOMYCIN 500 MG PREMIX 100 ML IV NR (20:00)
[2019-06-18] MEDS: BLOOD SUGAR DIAGNOSTIC STRIP TEST SCH ×2 (20:18→23:12)
[2019-06-18] MEDS: PIPERACILLIN/TAZOBACTAM 2.25 G in DEXTROSE 5% WATER 50 ML IV SCH (20:53)
[2019-06-18] MEDS: INSULIN LISPRO 100 UNITS/ML SUBCUT SCH (23:12)
[2019-06-19] VITALS (15 sets, daily range): BP systolic 57–64; BP diastolic 37–68
[2019-06-19] MEDS: DOPAMINE 800MG PREMIX (DOUBLE) 250 ML IV PRN ×2 (00:32→02:59)
[2019-06-19] MEDS: VASOPRESSIN 10 UNIT in SODIUM CHLORIDE 0.9% 99.5 ML IV PRN ×2 (00:32→04:43)
[2019-06-19] MEDS: PIPERACILLIN/TAZOBACTAM 2.25 G in DEXTROSE 5% WATER 50 ML IV SCH (04:06)
[2019-06-19] MEDS: SODIUM BICARBONATE 150 MEQ in SODIUM CHLORIDE 0.45% 850 ML IV SCH (04:08)
[2019-06-19] MEDS: INSULIN LISPRO 100 UNITS/ML SUBCUT SCH (05:03)
[2019-06-19] MEDS: BLOOD SUGAR DIAGNOSTIC STRIP TEST SCH (05:03)
[2019-06-19 05:45] LABS: CHLORIDE 98 mEq/L (98-107)
[2019-06-19 05:52] LABS: LDL CHOLESTEROL 21 mg/dL (5-100)
[2019-06-19 05:54] LABS: HDL CHOLESTEROL 12 mg/dL (40-59)
[2019-06-19 06:13] LABS: HEMATOCRIT. 30.4 % (42.0-52.0); MEAN CORPUSCULAR VOLUME 91.4 fL (80.0-94.0); MEAN PLATELET VOLUME 9.1 fl (7.4-10.4); PLATELET 127 x1000/uL (130-400); RED BLOOD CELL COUNT 3.33 mill/uL (4.7-6.1); RED CELL DISTRIBUTION WIDTH 16.1 % (11.6-14.6)
[2019-06-19 08:14] LABS: NUCLEATED RED BLOOD CELLS 2 /100 WBC; PLATELET ESTIMATE SLIGHTLY DECREASED
[2019-06-19] MEDS ORDERED: INSULIN LISPRO 100 UNITS/ML SUBCUT SCH (19:30)
== END 2019-06-19 09:37 | disposition expired | DRG 871 ==
LOC: ER 12:25 → CVICU 13:44 → EDBEDREQ 14:04 → EDBEDREQSVC 14:04 → ENRESERV 14:24
PROVIDERS: ADMIT Internal Medicine; ATTEND Internal Medicine
PROC: 5A1935Z Respiratory Ventilation, Less than 24 Consecutive Hours (ICD-10-PCS; principal; 2019-06-18)
DX: A41.9 Sepsis, unspecified organism (principal); R65.21 Severe sepsis with septic shock; J96.01 Acute respiratory failure with hypoxia; J18.9 Pneumonia, unspecified organism; N17.0 Acute kidney failure with tubular necrosis; G93.41 Metabolic encephalopathy; E43 Unspecified severe protein-calorie malnutrition; E87.1 Hypo-osmolality and hyponatremia; E87.2 Acidosis; N39.0 Urinary tract infection, site not specified; K92.2 Gastrointestinal hemorrhage, unspecified; R57.9 Shock, unspecified; K55.9 Vascular disorder of intestine, unspecified; E87.5 Hyperkalemia; I11.0 Hypertensive heart disease with heart failure; I25.2 Old myocardial infarction; G30.9 Alzheimer's disease, unspecified; F02.80 Dementia in other diseases classified elsewhere, unspecified severity, without behavioral disturbance, psychotic disturbance, mood disturbance, and anxiety; C67.9 Malignant neoplasm of bladder, unspecified; I44.0 Atrioventricular block, first degree; I48.0 Paroxysmal atrial fibrillation; Z95.0 Presence of cardiac pacemaker; Z85.51 Personal history of malignant neoplasm of bladder; Z85.46 Personal history of malignant neoplasm of prostate; Z87.01 Personal history of pneumonia (recurrent); I25.10 Atherosclerotic heart disease of native coronary artery without angina pectoris
CPT/HCPCS: 31500; 36415; 36600; 71045; 74176; 80053; 80061; 80076; 80202; 81003; 82248; 82375; 82805; 82962; 83036; 83605; 84145; 84443; 84484; 85025; 87070; 87077; 87186; 92950; 93005; 93970; 94002; 99291; J0456; J1265; J1815; J2370; J2543; J3370; J3490; J7030; J7050; J7060; P9041